=== PATIENT | female | born 1970 | race Caucasian/White ===

== ENCOUNTER 2024-09-09 05:22 | Observation (INO) | payer MEDICARE ==
[~2024-09-09] VITALS: Ht 165.1 cm; Wt 99.3 kg
[~2024-09-09 05:22] MED LIST: AURYXIA210 MG PO; CALCITRIOL0.25 MCG PO; CARVEDILOL12.5 MG PO; CLONIDINE HCL0.2 MG PO; DIOVAN320 MG; HYDROCODON-ACE1 EA11 PO; LIDOCAINE 2%; METHOCARBAMOL750 MG PO; METOPROLOL SUC100 MG; PAROXETINE HCL20 MG PO; PRORENAL VITAL1 EACH; RENVELA0.8 GM PO; SENSIPAR30 MG PO; SERTRALINE HCL50 MG PO; TIZANIDINE HCL4 M1 PO; ULTRAM50 MG PO; Z TIROSINT; Z.0.AMLODIPINE BESY1; Z.0.ATENOLOL50 MG; Z.0.CATAPRES0.2 MG; Z.0.LEXAPRO20 MG; [UNRECOGNIZED DRUG - OTHER]
[2024-09-09] MEDS: SODIUM CHLORIDE 0.9% 500ML 500 ML ONE (06:14)
[2024-09-09] MEDS: CEFAZOLIN SODIUM 2 GM ONE (06:14)
[2024-09-09 06:18] LABS: BASOPHILS % 0.7 % (0.0-1.0); EOSINOPHILS # (AUTO) 0.2 (0.0-0.4); EOSINOPHILS % 3.7 % (0.0-6.0); HEMOGLOBIN 10.7 g/dL (12.0-16.0); LYMPHOCYTES # (AUTO) 1.7 (1.0-3.2); LYMPHOCYTES % 38.2 % (18.0-39.1); MEAN CORPUSCULAR HEMOGLOBIN 32.9 pg (28-32); MEAN CORPUSCULAR HGB CONC 33.4 g/dL (31-35); MEAN CORPUSCULAR VOLUME 98.5 fL (81-99); MONOCYTES # (AUTO) 0.4 (0.2-0.8); MONOCYTES % 9.2 % (4.4-11.3); NEUTROPHILS # (AUTO) 2.2 (2.1-6.9); PLATELET COUNT 146 x10e3/uL (140-360); RED BLOOD COUNT 3.25 x10e6/uL (3.6-5.1); RED CELL DISTRIBUTION WIDTH 13.6 % (11.7-14.4); WHITE BLOOD COUNT 4.56 x10e3/uL (4.8-10.8)
[2024-09-09 06:32] LABS: INR 0.95; PROTHROMBIN TIME 13.6 seconds (11.9-14.5)
[2024-09-09 06:33] LABS: PARTIAL THROMBOPLASTIN TIME 27.7 seconds (23.8-35.5)
[2024-09-09] MEDS: SCOPOLAMINE 1 MG PATCH ONE (06:34)
[2024-09-09 06:38] LABS: ANION GAP 21.1 mmol/L (8-16); CALCIUM 7.7 mg/dL (8.4-10.2); CREATININE, SERUM 9.07 mg/dL (0.57-1.11); POTASSIUM 4.1 mmol/L (3.5-5.1)
[2024-09-09] MEDS ORDERED: MIDAZOLAM HCL 2 MG/2 ML VIAL ONE (06:40)
[2024-09-09] MEDS ORDERED: FENTANYL CITRATE/PF 100MCG/2 ML INJ ONE ×2 (06:40→06:54)
[2024-09-09] MEDS ORDERED: SEVOFLURANE INHAL SOLN 250 ML PEN BTL ONE (06:54)
[2024-09-09] MEDS ORDERED: PROPOFOL IV EMULSION 10 MG/ML 20 ML VIAL ONE (06:54)
[2024-09-09] MEDS ORDERED: LIDOCAINE HCL 2% LOCAL INJ 5 ML SDV VIAL INJ ONE (06:54)
[2024-09-09] MEDS ORDERED: ONDANSETRON HCL INJ 2MG/ML 2ML 2 MG/ML VIAL IV PRN ×2 (07:00→16:15)
[2024-09-09] MEDS ORDERED: DOCUSATE SODIUM 100 MG CAP PO PRN ×2 (07:00→16:15)
[2024-09-09] MEDS ORDERED: FAMOTIDINE 20 MG/2 ML VIAL IV ONE (07:27)
[2024-09-09] MEDS ORDERED: DEXAMETHASONE SOD PHOS INJ 4 MG/ML SDV ONE (07:27)
[2024-09-09] MEDS ORDERED: METOCLOPRAMIDE HCL 10 MG/2ML VIAL ONE (07:27)
[2024-09-09] MEDS ORDERED: EPHEDRINE SULFATE INJ 50 MG/ML VIAL ONE (07:30)
[2024-09-09] MEDS ORDERED: ACETAMINOPHEN 1000 MG/100 ML 100 ML IV ONE (07:35)
[2024-09-09] MEDS ORDERED: PHENYLEPHRINE HCL 1% 10 MG/ML VIAL ONE (08:03)
[2024-09-09] MEDS: ASPIRIN 81 MG ENTERIC COATED PO SCH (09:00)
[2024-09-09] MEDS: ONDANSETRON HCL INJ 2MG/ML 2ML 2 MG/ML VIAL ONE (09:31)
[2024-09-09 11:44] VITALS: BP 121/73; PULSE 74; RESP 18; TEMP 98.5; O2SAT 100
[2024-09-09 13:53] VITALS: PULSE 65; RESP 18; O2SAT 95
[2024-09-09] MEDS: HYDROCODONE/APAP 7.5MG-325MG 1 EA TAB PO PRN (15:09)
[2024-09-09 15:30] VITALS: BP 113/73; PULSE 74; RESP 18; TEMP 98.5; O2SAT 100
[2024-09-09 15:46] VITALS: BP 130/72; PULSE 83; RESP 17; TEMP 97.9; O2SAT 100
[2024-09-09] MEDS ORDERED: SIMETHICONE 80 MG CHEW PO PRN (16:15)
[2024-09-09] MEDS ORDERED: ALBUTEROL/IPRATROPIUM 3 ML NEB NEB PRN (16:15)
[2024-09-09] MEDS ORDERED: DEXTROSE 50% SYRINGE 50 ML IV PRN (16:15)
[2024-09-09] MEDS ORDERED: LIDOCAINE 4% PATCH TP PRN (16:15)
[2024-09-09] MEDS ORDERED: POTASSIUM CHLORIDE 20 MEQ TAB CR PO PRN (16:15)
[2024-09-09] MEDS ORDERED: HYDRALAZINE HCL 20 MG/ML VIAL IV PRN (16:15)
[2024-09-09] MEDS ORDERED: DIPHENHYDRAMINE HCL 25 MG CAP PO PRN (16:15)
[2024-09-09] MEDS ORDERED: BENZONATATE 100 MG CAP PO PRN (16:15)
[2024-09-09] MEDS ORDERED: ACETAMINOPHEN 325 MG TAB PO PRN (16:15)
[2024-09-09] MEDS ORDERED: ENOXAPARIN SOD INJ 40 MG/0.4 ML SYR SC SCH (17:00)
[2024-09-09] MEDS: CARVEDILOL 12.5 MG TAB PO SCH (17:41)
[2024-09-09 19:35] VITALS: PULSE 71; RESP 16; O2SAT 98
[2024-09-09 20:00] VITALS: BP 119/72; PULSE 78; RESP 20; TEMP 97.8; O2SAT 100
[2024-09-09] MEDS ORDERED: MELATONIN 5 MG TABLET PO PRN (21:00)
[2024-09-09] MEDS: FERRIC CITRATE PO SCH (21:00)
[2024-09-09] MEDS: HEPARIN SOD (PORCINE) 5,000 UNIT/ML VIAL SC SCH (22:16)
[2024-09-10] VITALS (10 sets, daily range): BP systolic 109–135; BP diastolic 61–79; PULSE 68–81; RESP 16–20; TEMP 97.1–98.1; O2SAT 95–100
[2024-09-10 06:00] LABS: BASOPHILS % 0.4 % (0.0-1.0); EOSINOPHILS % 0.4 % (0.0-6.0); HEMATOCRIT 25.3 % (34.2-44.1); HEMOGLOBIN 8.3 g/dL (12.0-16.0); LYMPHOCYTES # (AUTO) 1.6 (1.0-3.2); LYMPHOCYTES % 28.4 % (18.0-39.1); MEAN CORPUSCULAR HEMOGLOBIN 32.9 pg (28-32); MEAN CORPUSCULAR HGB CONC 32.8 g/dL (31-35); MEAN CORPUSCULAR VOLUME 100.4 fL (81-99); MONOCYTES # (AUTO) 0.7 (0.2-0.8); MONOCYTES % 11.5 % (4.4-11.3); NEUTROPHILS # (AUTO) 3.4 (2.1-6.9); NEUTROPHILS % 58.9 % (38.7-80.0); PLATELET COUNT 100 x10e3/uL (140-360); RED BLOOD COUNT 2.52 x10e6/uL (3.6-5.1); RED CELL DISTRIBUTION WIDTH 13.9 % (11.7-14.4); WHITE BLOOD COUNT 5.67 x10e3/uL (4.8-10.8)
[2024-09-10 06:18] LABS: ANION GAP 19.6 mmol/L (8-16); CREATININE, SERUM 11.23 mg/dL (0.57-1.11); POTASSIUM 4.6 mmol/L (3.5-5.1)
[2024-09-10] MEDS: HYDROCODONE/APAP 5MG-325MG TAB PO PRN (06:19)
[2024-09-10 06:29] LABS: CALCIUM 6.7 mg/dL (8.4-10.2)
[2024-09-10] MEDS: PAROXETINE HCL 20 MG TAB PO SCH (09:00)
[2024-09-10] MEDS: PANTOPRAZOLE SOD 40 MG TABEC PO SCH (09:17)
[2024-09-10] MEDS: CALCITRIOL 0.25 MCG CAP PO SCH (09:20)
[2024-09-10] MEDS: SERTRALINE HCL 50 MG TAB PO SCH (09:20)
[2024-09-10] MEDS: METHOCARBAMOL 500 MG TAB PO PRN (12:14)
[2024-09-10] MEDS: CARVEDILOL 12.5 MG TAB PO SCH (14:00)
[2024-09-10] MEDS ORDERED: IRON SUCROSE 100 MG in SODIUM CHLORIDE 0.9% 100 ML IV SCH (14:00)
[2024-09-10] MEDS: CALCIUM CARBONATE 500 MG CHEWABLE TABS PO SCH (16:41)
[2024-09-10] MEDS: SODIUM CHLORIDE 0.9% 1000ML 1,000 ML ONE (19:41)
[2024-09-10] MEDS: MIDODRINE 2.5 MG TAB PO ONE (19:41)
[2024-09-10] MEDS: CALCIUM GLUC 1 G/50 ML NACL 50 ML IV ONE ×2 (19:42→21:22)
[2024-09-10] MEDS: EPOETIN ALFA-EPBX 10,000 UNIT/ML VIAL SC ONE ×2 (19:43→21:31)
[2024-09-10] MEDS: IRON SUCROSE 100 MG in SODIUM CHLORIDE 0.9% 100 ML IV SCH (23:25)
[2024-09-11 03:37] VITALS: BP 127/76; PULSE 79; RESP 18; TEMP 97.2; O2SAT 99
[2024-09-11 05:57] LABS: ALBUMIN/GLOBULIN RATIO 0.9 (0.8-2.0); ALKALINE PHOSPHATASE 77 IU/L (40-150); ANION GAP 16.8 mmol/L (8-16); BILIRUBIN,TOTAL 0.5 mg/dL (0.2-1.2); BLOOD UREA NITROGEN 24 mg/dL (7-26); BUN/CREATININE RATIO 3 (6-25); CALCIUM 8.5 mg/dL (8.4-10.2); CARBON DIOXIDE 27 mmol/L (22-29); CHLORIDE 103 mmol/L (98-107); CREATININE, SERUM 7.23 mg/dL (0.57-1.11); EST GLOMERULAR FILTRATION RATE 6 ML/MIN (>=60); GLUCOSE 99 mg/dL (74-118); POTASSIUM 4.8 mmol/L (3.5-5.1); SODIUM 142 mmol/L (136-145); TOTAL PROTEIN 6.3 g/dL (6.5-8.1)
[2024-09-11 06:04] LABS: ALANINE AMINOTRANSFERASE < 6 IU/L (0-55)
[2024-09-11 06:09] LABS: BASOPHILS % 0.7 % (0.0-1.0); EOSINOPHILS # (AUTO) 0.1 (0.0-0.4); EOSINOPHILS % 2.1 % (0.0-6.0); HEMATOCRIT 28.8 % (34.2-44.1); HEMOGLOBIN 9.1 g/dL (12.0-16.0); LYMPHOCYTES # (AUTO) 1.5 (1.0-3.2); LYMPHOCYTES % 35.9 % (18.0-39.1); MEAN CORPUSCULAR HGB CONC 31.6 g/dL (31-35); MEAN CORPUSCULAR VOLUME 104.3 fL (81-99); MONOCYTES # (AUTO) 0.5 (0.2-0.8); NEUTROPHILS # (AUTO) 2.1 (2.1-6.9); NEUTROPHILS % 49.8 % (38.7-80.0); PLATELET COUNT 108 x10e3/uL (140-360); RED BLOOD COUNT 2.76 x10e6/uL (3.6-5.1); RED CELL DISTRIBUTION WIDTH 14.5 % (11.7-14.4); WHITE BLOOD COUNT 4.29 x10e3/uL (4.8-10.8)
[2024-09-11 07:15] VITALS: BP 124/84; PULSE 84; RESP 16; TEMP 98.1; O2SAT 100
[2024-09-11 07:30] VITALS: PULSE 76; RESP 20; O2SAT 97
[2024-09-11 09:00] VITALS: BP 124/84; PULSE 84; RESP 18; TEMP 98.1; O2SAT 100
[2024-09-11 11:50] VITALS: BP 110/70; PULSE 76; PULSE 78; RESP 18; RESP 20; TEMP 98.1; O2SAT 100; O2SAT 96
[2024-09-11] MEDS ORDERED: ASPIRIN EC81 MG PO (15:16)
[2024-09-14 05:23] LABS: HEPATITIS B CORE AB TOTAL Negative; HEPATITIS B SURFACE AG (P) Negative
== END 2024-09-11 16:29 | disposition home health service (06) ==
LOC: OR 05:22 → PACU V 10:54 → MED/SURG2 11:47 → MED/SURG 09-11 14:38
PROVIDERS: ADMIT Internal Medicine; ATTEND Internal Medicine
DX: S82.002A Unspecified fracture of left patella, initial encounter for closed fracture (principal); I12.0 Hypertensive chronic kidney disease with stage 5 chronic kidney disease or end stage renal disease; N18.6 End stage renal disease; N25.0 Renal osteodystrophy; Z99.2 Dependence on renal dialysis; D63.1 Anemia in chronic kidney disease; N25.81 Secondary hyperparathyroidism of renal origin; F41.8 Other specified anxiety disorders
CPT/HCPCS: 27524; 36415 ×3; 73560; 76000; 80048 ×2; 80053; 85025 ×3; 85610; 85730; 86704; 86706; 87340; 90970; 93005; 94799 ×3; 97110; 97116 ×3; 97161; 97530 ×2; C1713; G0378 ×3; J0131; J0690 ×2; J1100; J1308; J1644 ×3; J1756; J2003; J2250; J2371; J2405; J2470 ×2; J2704; J2765; J3010; J7030; J7040; J7050